=== PATIENT | male | born 1965 | race Caucasian/White ===

== ENCOUNTER → 2016-04-27 | Outpatient (CLI) | payer OTHER ==
--- NOTE | 2016-04-27 14:56 | CT ---
Study: CT abdomen and pelvis. Indication: HEMATURIA Technique: CT of the abdomen and pelvis obtained without intravenous contrast. Comparison: None. Findings: Hepatic steatosis and hepatomegaly. Tiny millimetric layering calcified gallstones. Lower chest, pancreas, spleen, adrenal glands, bladder, and prostate gland demonstrate a normal unenhanced CT appearance. Mild nonspecific bilateral perinephric stranding. No hydronephrosis or nephrolithiasis. Tiny fat containing left inguinal hernia. Colonic diverticulosis without diverticulitis. Stomach, small bowel, and appendix unremarkable. No free fluid. No free air. No pathologically enlarged abdominopelvic lymphadenopathy. Calcific atherosclerosis aorta. No acute osseous abnormality Impression: Colonic diverticulosis without diverticulitis. Mild nonspecific bilateral perinephric stranding. Correlation with urinalysis and urine cultures recommended. No CT evidence of hydronephrosis or nephrolithiasis. Hepatic steatosis and hepatomegaly. Atherosclerosis. Electronically signed by: Bora Kennedy MD 04/27/2016 14:54
== END ==
LOC: CT 14:19
PROVIDERS: ATTEND Family Medicine
DX: R31.9 Hematuria, unspecified (principal); K57.30 Diverticulosis of large intestine without perforation or abscess without bleeding; K76.0 Fatty (change of) liver, not elsewhere classified; I70.90 Unspecified atherosclerosis

== ENCOUNTER → 2016-10-25 | Outpatient (CLI) | payer OTHER ==
--- NOTE | 2016-10-25 16:25 | US ---
EXAM DESCRIPTION: Liver CLINICAL HISTORY: LFT COMPARISON: None. TECHNIQUE: Real-time sonographic images of the right upper quadrant of the abdomen are obtained. FINDINGS: Pancreas is unremarkable. The right lobe of the liver measures 22.2cm. The liver is diffusely heterogeneous and increased in echogenicity. No focal hepatic mass is seen. The gallbladder is normally distended. A 1.7 cm focus of increased echogenicity is seen posterior to the gallbladder. Posterior acoustic shadowing is difficult to appreciate. No movement with this echogenic area seen.. No gallbladder wall thickening or pericholecystic fluid is seen. The common bile duct measures 5.1 mm in greatest diameter. The right kidney is not evaluated. IMPRESSION: Hepatomegaly with heterogeneous increased echogenicity of the liver suggest diffuse fatty infiltration. Focus of increased echogenicity posterior to the gallbladder could represent underlying bowel gas versus gallstone. Gallstone is not clearly identified as this does not appear mobile. If clinically indicated, further evaluation with MRCP to evaluate for cholelithiasis could be useful. Electronically signed by: Marco Pino MD 10/25/2016 4:07 PM CDT
== END | disposition home or self-care (01) ==
LOC: US 10-19 09:52
PROVIDERS: ATTEND Family Medicine
DX: R94.5 Abnormal results of liver function studies (principal)

== ENCOUNTER 2017-07-06 21:46 | Emergency (ER) | payer OTHER ==
[2017-07-06] MEDS ORDERED: KETOROLAC TROMETHAMINE INJ 60 MG/2 ML VIAL IM ONE (22:05)
--- NOTE | 2017-07-06 22:07 | ED.PDOC ---
History of Present Illness - General Chief Complaint: Upper Extremity Injury Stated Complaint: right arm pain, tried to catch when falling Time Seen by Provider: 07/06/17 22:05 Source: patient Exam Limitations: no limitations - History of Present Illness Initial Comments: patient comes in today with pain to the right forearm. Patient had his was falling and he went to catch her feeling a sudden tear around the area of the forearm and elbow. Now he has some swelling and pain but is able to move the arm and has normal sensation. He had no injury prior and no chronic problem with the area. His past medical history significant for diabetes and hypertension but the only surgeries he's had his carpal tunnel release. Patient has no known drug allergies. He does not smoke, drinks only occasionally, and takes no illicit substances. 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 Occurred: just prior to arrival Pain - Upper Extremity: moderate: Forearm, left Allergies/Adverse Reactions: Allergies NO KNOWN ALLERGY Allergy (Verified 01/27/13 12:23) Home Medications: Ambulatory Orders Losartan Potassium & Hydrochlo [Losartan Potassium/Hydroc 100-25 mg] 1 tab PO DAILY 02/20/16 Metformin HCl 500 mg PO BEDTIME 02/20/16 Ibuprofen 800 mg PO TID PRN 10 Days #30 tab 07/06/17 Review of Systems - Review of Systems Constitutional: States: no symptoms reported EENTM: States: no symptoms reported Respiratory: States: no symptoms reported Cardiology: States: no symptoms reported Gastrointestinal/Abdominal: States: no symptoms reported Genitourinary: States: no symptoms reported Musculoskeletal: States: see HPI Past Medical History (General) - Patient Medical History Hx Seizures: No Hx Hypertension: Yes Hx Diabetes: Yes - Vaccination History Hx Influenza Vaccination: No - Social History Hx Alcohol Use: No Hx Substance Use: No Hx Substance Use Treatment: No Hx Depression: No Family Medical History - Family History Mother Family History: Unknown Hx Family Cancer: No Physical Exam - Physical Exam General Appearance: Alert, Comfortable, No apparent distress Eyes, Ears, Nose, Throat Exam: PERRL/EOMI Cardiovascular/Respiratory: regular rate, rhythm, no M/R/G Abdominal Exam: non-tender Shoulder Exam: normal inspection Elbow/Forearm Exam: swelling DTR: 2+: Biceps, left, Biceps, right Neuro/Tendon: normal sensation, normal motor functions Progress - EKG/XRAY/CT XRAY: forearm - normal Departure - Departure Clinical Impression: Muscle tear Disposition: Discharge to Home or Self Care Condition: Good Departure Forms: ED Discharge - Pt. Copy, Patient Portal Self Enrollment Instructions: DI for Arm Pain Diet: regular diet Activity: increase activity as tolerated Referrals: Sekou Lipscomb MD [Primary Care Provider] - 1-2 Weeks Home Medications: Ambulatory Orders Losartan Potassium & Hydrochlo [Losartan Potassium/Hydroc 100-25 mg] 1 tab PO DAILY 02/20/16 Metformin HCl 500 mg PO BEDTIME 02/20/16 Ibuprofen 800 mg PO TID PRN 10 Days #30 tab 07/06/17 Comments: patient has suspected tear of the flexor carpi radialis muscle. We've explained that ice to the area and rest is normally all that's required. However, he should follow up with his normal doctor in 1 week to recheck the area and make sure that it is healing. Ibuprofen 800 mg by mouth twice a day for pain. Return to the emergency room for severe swelling, increased pain, deformity of the area.
[2017-07-06 22:14] VITALS: BP 150/87; TEMP 97.9; O2SAT 97
--- NOTE | 2017-07-06 22:16 | RAD ---
Examination: XR ELBOW 1-2 VIEWS dated 07/06/2017 10:05 PM CDT History: hurt catching falling Comparison: None Technique: Two views of the right elbow FINDINGS: No acute fracture or dislocation. Alignment is within normal limits. No significant joint effusion. IMPRESSION: No acute osseous abnormality. Electronically signed by: Salomon Rangel MD 07/06/2017 10:15 PM CDT
== END 2017-07-06 23:00 | disposition home or self-care (01) ==
LOC: ER 21:46
DX: S56.211A Strain of other flexor muscle, fascia and tendon at forearm level, right arm, initial encounter (principal); I10 Essential (primary) hypertension; X50.9XXA Other and unspecified overexertion or strenuous movements or postures, initial encounter

== ENCOUNTER 2018-07-27 19:21 | Emergency (ER) | payer OTHER ==
[2018-07-27 19:40] VITALS: TEMP 98
--- NOTE | 2018-07-27 19:46 | ED.PDOC ---
History of Present Illness - General Chief Complaint: Problem Stated Complaint: lfet flank pain, nausea, vomiting Time Seen by Provider: 07/27/18 19:46 Source: patient Exam Limitations: no limitations - History of Present Illness Initial Comments: Byron Markham 53 y/o male with history of kidney stone in the past stated that for the last 3 1/2 days had intermittent stabbing pain left flank which gradually got worse today with 3 episodes of nausea/vomiting.No hematuria,constipation diarrhea,fever or chills.Stated same symptoms when passing out kidney stones. Timing/Duration: getting worse, intermittent Severity: moderate Improving Factors: nothing Worsening Factors: nothing Associated Symptoms: nausea/vomiting Allergies/Adverse Reactions: Allergies NO KNOWN ALLERGY Allergy (Verified 01/27/13 12:23) Home Medications: Ambulatory Orders Losartan Potassium & Hydrochlo [Losartan Potassium/Hydroc 100-25 mg] 1 tab PO DAILY 02/20/16 Metformin HCl 500 mg PO BEDTIME 02/20/16 Ibuprofen 800 mg PO TID PRN 10 Days #30 tab 07/06/17 Acetaminophen W/ Codeine [Tylenol w/Codeine 300-30 mg] 1 tab PO Q4HR PRN #20 tab 07/27/18 Tamsulosin HCl [Flomax] 0.4 mg PO DAILY #7 cap 07/27/18 Review of Systems - Review of Systems Constitutional: States: no symptoms reported EENTM: States: no symptoms reported Respiratory: States: no symptoms reported Cardiology: States: no symptoms reported Gastrointestinal/Abdominal: States: no symptoms reported Musculoskeletal: States: see HPI Skin: States: no symptoms reported All other Systems: Reviewed and Negative, No Change from Baseline Past Medical History (General) - Patient Medical History Hx Seizures: No Hx Stroke: No Hx Dementia: No Hx Asthma: No Hx of COPD: No Hx Cardiac Disorders: No Hx Congestive Heart Failure: No Hx Pacemaker: No Hx Hypertension: Yes Hx Thyroid Disease: No Hx Diabetes: Yes Hx Gastroesophageal Reflux: No Hx Renal Disease: No Hx Cancer: No Hx of HIV: No Hx Hepatitis C: No Hx MRSA: No Surgical History: other - carpal tunnel surgery - Vaccination History Hx Tetanus, Diphtheria Vaccination: No Hx Influenza Vaccination: No Hx Pneumococcal Vaccination: No - Social History Hx Tobacco Use: No Hx Alcohol Use: Yes - occ Hx Substance Use: No Hx Substance Use Treatment: No Hx Depression: No Family Medical History - Family History Mother Family History: Unknown Hx Family Cancer: No Hx Family;Other: thyroid-dad Physical Exam - Physical Exam General Appearance: Alert, Comfortable, No apparent distress Eye Exam: bilateral normal Ears, Nose, Throat: hearing grossly normal, normal ENT inspection, normal pharynx Neck: non-tender, full range of motion, supple, normal inspection Respiratory: chest non-tender, lungs clear, normal breath sounds, no respiratory distress Cardiovascular/Chest: normal peripheral pulses, regular rate, rhythm, no murmur Gastrointestinal/Abdominal: normal bowel sounds, non tender, soft, no organomegaly Back Exam: no vertebral tenderness, CVA tenderness (L) Extremity: no pedal edema, no calf tenderness Neurologic: alert, oriented x 3 Skin Exam: normal color, warm/dry Progress - Progress Progress: 07/27/18 20:01 Vital Signs - 8 hr 07/27/18 19:34 Temperature 98.0 F Pulse Rate [ 87 left] Respiratory 18 Rate Blood Pressure 158/80 [left] O2 Sat by Pulse 97 Oximetry - Results/Orders Results/Orders: 07/27/18 19:53 IV Care:Saline Lock per Protoc QSHIFT Laboratory Results - last 24 hr 07/27/18 07/27/18 19:40 20:10 WBC 11.2 H RBC 5.52 Hgb 15.3 Hct 45.0 MCV 81.5 MCH 27.7 MCHC 34.0 RDW 14.6 H Plt Count 187 MPV 8.5 Absolute Neuts (auto) 9.10 H Absolute Lymphs (auto) 1.00 Absolute Monos (auto) 1.00 H Absolute Eos (auto) 0.10 Absolute Basos (auto) 0.00 Neutrophils % 81.0 H Lymphocytes % 9.2 L Monocytes % 8.5 Eosinophils % 1.0 Basophils % 0.3 PT 9.9 INR 0.99 PTT (SP) 42.8 H Sodium 135 Potassium 3.2 L Chloride 97 L Carbon Dioxide 23 Anion Gap 18.2 H BUN 21 H Creatinine 1.67 H BUN/Creatinine Ratio 12.6 Random Glucose 209 H Serum Osmolality 279.2 Calcium 9.8 Magnesium 1.7 L Total Bilirubin 1.8 H Direct Bilirubin 0.4 H Indirect Bilirubin 1.4 H AST 37 ALT 53 Alkaline Phosphatase 68 Creatine Kinase 99 CK-MB (CK-2) 1.9 CK-MB (CK-2) % Not Reportable Troponin I < 0.02 Serum Total Protein 8.5 H Albumin 4.4 Urine Color Yellow Urine Appearance Clear Urine pH 5.5 Ur Specific [place] >= 1.030 Urine Protein 30 Urine Glucose (UA) 100 H Urine Ketones Trace Urine Blood Trace-lysed H Urine Nitrite Negative Urine Bilirubin Negative Urine Urobilinogen 0.2 Ur Leukocyte Esterase Negative Urine RBC 0-1 Urine WBC 0 Ur Epithelial Cells 0 Urine Bacteria 0 Discuss all test report with patient that he has left distal ureteral stone that he can passed also talked about referral to infrastructure design engineer and senior data scientist. - EKG/XRAY/CT CT Ordered: Yes - abd/p-left ureteral stone distal Departure - Departure Clinical Impression: Acute left flank pain, Calculus of distal left ureter, Renal insufficiency, mild, Hypomagnesemia Hyperglycemia due to type 2 diabetes mellitus Qualifiers: Diabetes mellitus assisted insulin use: without assisted use Qualified Code(s): E11.65 - Type 2 diabetes mellitus with hyperglycemia Time of Disposition: 22:02 Disposition: Discharge to Home or Self Care Condition: Fair Departure Forms: ED Discharge - Pt. Copy, Patient Portal Self Enrollment Instructions: DI for Kidney Stones, Nonalcoholic Fatty Liver Disease (DC), Nonalcoholic Steatohepatitis (BARRETO), How to Strain Your Urine, Mediterranean Diet Referrals: Sekou Lipscomb MD [Primary Care Provider] - 1-2 Weeks Prescriptions: Acetaminophen W/ Codeine [Tylenol w/Codeine 300-30 mg] 1 tab PO Q4HR PRN #20 tab PRN Reason: Pain Tamsulosin HCl [Flomax] 0.4 mg PO DAILY #7 cap Home Medications: Ambulatory Orders Losartan Potassium & Hydrochlo [Losartan Potassium/Hydroc 100-25 mg] 1 tab PO DAILY 02/20/16 Metformin HCl 500 mg PO BEDTIME 02/20/16 Ibuprofen 800 mg PO TID PRN 10 Days #30 tab 07/06/17 Acetaminophen W/ Codeine [Tylenol w/Codeine 300-30 mg] 1 tab PO Q4HR PRN #20 tab 07/27/18 Tamsulosin HCl [Flomax] 0.4 mg PO DAILY #7 cap 07/27/18 Additional Instructions: Return to Emergency room as needed;Follow up with your primary Md 28 July 2018 for recheck and referral to Qa Tech and Sql Etl Developer;Need to take over the counter Mag Ox-400mg po daily
[2018-07-27] MEDS: TAMSULOSIN 0.4 MG CAP PO ONE (20:08)
[2018-07-27] MEDS: ONDANSETRON INJ 4 MG/2 ML VIAL IV ONE (20:10)
[2018-07-27] MEDS: MORPHINE SULFATE INJ 10 MG/ML VIAL IV ONE (20:11)
[2018-07-27] MEDS: KETOROLAC TROMETHAMINE INJ 30 MG/ML VIAL IV ONE (20:11)
[2018-07-27] MEDS: LACTATED RINGERS 1,000 ML IVS ONE (20:13)
--- NOTE | 2018-07-27 21:10 | CT ---
EXAM DESCRIPTION: Abdomen/Pelvis w/o Contrast CLINICAL HISTORY: left flank pain/hx of nephrolithiasis COMPARISON: 04/27/2016 TECHNIQUE: CT of the abdomen and pelvis was performed without contrast. Multiple axial images and multiplanar reconstructions were generated. This exam was performed according to our departmental dose-optimization program, which includes automated exposure control, adjustment of the mA and/or kV according to patient size and/or use of iterative reconstruction technique. FINDINGS: Lung bases: The visualized lung bases are clear. Solid organs: Obstructing 3.5 mm calculus in the distal aspect of the left ureterovesical junction or adherent the ureteric mound. Mild to moderate left hydroureteronephrosis. At least 2 additional nonobstructing left renal calculi measuring 3 mm each in the lower pole. Evaluation of the solid organs is limited due to lack of IV contrast. Hepatomegaly with hepatic steatosis. Cholelithiasis. The spleen, pancreas, right kidney, and adrenal glands are unremarkable. Gastrointestinal: Rare colonic diverticulosis without CT evidence for diverticulitis. The stomach and small intestine are unremarkable. The appendix is normal. No free fluid or free air. Vascular: Mild atherosclerotic plaque in the abdominal aorta and its major branches. Lymph nodes: No pathologically enlarged lymph nodes are present by CT size criteria. Musculoskeletal and soft tissues: No destructive osseous lesions are present. Fat-containing umbilical hernia and bilateral fat-containing inguinal hernias. Urinary bladder and pelvic organs: There are no additional bladder calculi. The prostate is normal in size. IMPRESSION: 1. Obstructing 3.5 mm calculus in the distal left ureterovesical junction or adherent to the ureteric mound. Mild to moderate left hydroureteronephrosis. 2. Nonobstructing left nephrolithiasis. 3. Hepatomegaly with hepatic steatosis. 4. Fat-containing umbilical hernia and bilateral renal hernias. 5. Other findings as above. Electronically signed by: Philippe Duggan MD 07/27/2018 9:08 PM CDT
[2018-07-27] MEDS: SODIUM CHLORIDE 0.9% 500ML 500 ML IVS ONE (21:21)
[2018-07-27 21:49] VITALS: O2SAT 96
[2018-07-27 22:19] VITALS: BP 153/90
== END 2018-07-27 22:19 | disposition home or self-care (01) ==
LOC: ER 19:21
DX: N13.2 Hydronephrosis with renal and ureteral calculous obstruction (principal); E83.42 Hypomagnesemia; E11.65 Type 2 diabetes mellitus with hyperglycemia; I10 Essential (primary) hypertension; Z79.84 Long term (current) use of oral hypoglycemic drugs; Z79.899 Other long term (current) drug therapy
CPT/HCPCS: 36415; 74176; 80048; 80076; 81001; 82550; 82553; 84484; 85025; 85610; 85730; J1885; J2270; J2405; J7040; J7120